=== PATIENT | female | born 1995 | race Caucasian/White ===

== ENCOUNTER 2018-10-27 08:51 | Emergency (ER) | payer OTHER ==
[~2018-10-27] VITALS: Ht 177.8 cm; Wt 101.6 kg
[2018-10-27 08:54] VITALS: Ht 177.8 cm; Wt 101.6 kg
[2018-10-27 11:02] VITALS: BP 106/65
== END 2018-10-27 11:02 | disposition home or self-care (01) ==
LOC: ED 08:51
DX: J06.9 Acute upper respiratory infection, unspecified (principal)
CPT/HCPCS: 87804